=== PATIENT | male | born 1990 | race Caucasian/White ===

== ENCOUNTER 2021-03-04 23:57 | Emergency (ER) | payer OTHER, MEDICAID, SELFPAY ==
[2021-03-05 00:04] VITALS: BP 140/91; PULSE 89; RESP 16; TEMP 37.1; O2SAT 98
--- NOTE | 2021-03-05 00:11 | ED_ITS ---
HPI - Skin/Abscess/Foreign Bdy General Chief complaint: Skin/Abscess/Foreign Body Stated complaint: abscess/buttocks x3 days Time Seen by Provider: 03/05/21 00:04 Source: patient Mode of arrival: Ambulatory History of Present Illness HPI narrative: Patient here with mother. Complains left gluteal pain/swelling/abscess. Onset 3 days ago. Drainage started tonight. No prior history of abscess. Related Data Previous Rx's Medication Instructions Recorded doxycycline monohydrate 100 mg 100 mg PO BID #20 cap 03/05/21 capsule ibuprofen 800 mg tablet 800 mg PO Q8H PRN #20 tab 03/05/21 Allergies Allergy/AdvReac Type Severity Reaction Status Date / Time No Known Drug Allergies Allergy Verified 03/05/21 00:06 Review of Systems Review of Systems Narrative: GENERAL: Denies chills, fatigue, malaise, fever, sweats. HEENT: Denies sinus pain, ear pain, sore throat RESPIRATORY: Denies dyspnea, cough CARDIOVASCULAR: Denies chest pain, palpitations GASTROINTESTINAL: Denies nausea, vomiting, abdominal pain : Denies dysuria, frequency, hematuria MUSCULOSKELETAL: denies muscle or bony pain SKIN: Denies rash, positive for skin lesion NEUROLOGIC: Denies weakness, numbness ROS Unobtainable: All systems reviewed & are unremarkable except as noted in HPI and below Exam Narrative Exam Narrative: GENERAL: in no distress, not toxic not dyspneic HEAD: Normocephalic. NEURO: AOx4. SKIN: Warm and dry. Examination of the buttock. At the gluteal cleft, on the left side there is induration and erythema and tenderness on palpation. Induration 3 cm in diameter. At the center there is fluctuance with active drainage of the abscess. Area is superior to the anus. No induration at the anus PSYCH: Not anxious, is cooperative Initial Vital Signs Initial Vital Signs: Vital Signs Temperature 98.8 F 03/05/21 00:04 Pulse Rate 89 03/05/21 00:04 Respiratory Rate 16 03/05/21 00:04 Blood Pressure 140/91 H 03/05/21 00:04 Pulse Oximetry 98 03/05/21 00:04 Course Course Course Narrative: No new issues during course of stay Orders Ordered: Discontinued Medications Doxycycline Hyclate (Doxycycline Hyclate 100 Mg Tablet) 100 mg PO NOW ONE Stop: 03/05/21 00:11 Last Admin: 03/05/21 00:18 Dose: 100 mg Documented by: GERALDINE Ibuprofen (Ibuprofen 400 Mg Tablet) 800 mg PO NOW ONE Stop: 03/05/21 00:11 Last Admin: 03/05/21 00:17 Dose: 800 mg Documented by: GERALDINE Reevaluation(s) Reevaluation #1: Reviewed with patient and mother, Sitz baths and warm compresses will help with healing process. Vital Signs Vital signs: Vital Signs - 8 hr 03/05/21 00:04 Temperature 98.8 F Pulse Rate 89 Respiratory Rate 16 Blood Pressure 140/91 H Pulse Oximetry 98 MDM - Skin/Abscess/Foreign Bdy Differential Diagnosis Differential diagnosis: Likely abscess of skin or subcutaneous tissue and other (Pilonidal cyst/perirectal abscess) MDM Narrative Medical decision making narrative: Appropriate for discharge home. Exam reassuring. It is not perirectal. No incision drainage at this time. Abscess is draining. Return precautions reviewed patient and mother. Wound care reviewed with him. Discharge Plan Departure Patient Disposition: Home Clinical Impression: Abscess of gluteal cleft Instructions: DI for Skin Abscess Activity Restrictions/Additional Instructions: Continue antibiotics tomorrow. Call provided primary care referral phone number to establish family doctor. Call [phone]. Call to set appointment for re- evaluation of your abscess within a week. Return if worsening questions or concerns. Continue with warm compresses 20 minutes at times to sore area. May use Sitz baths if available. Prescriptions: New ibuprofen 800 mg tablet 800 mg PO Q8H PRN (Reason: pain) Qty: 20 0RF doxycycline monohydrate 100 mg capsule 100 mg PO BID Qty: 20 0RF
[2021-03-05] MEDS: IBUPROFEN 400 MG TABLET 800 MG PO (00:17)
[2021-03-05] MEDS: DOXYCYCLINE HYCLATE 100 MG TABLET PO (00:18)
== END 2021-03-05 00:30 | disposition home or self-care (01) ==
PROVIDERS: Emergency Provider Emergency Medicine
DX: L02.31 Cutaneous abscess of buttock (principal)
CPT/HCPCS: 99283